=== PATIENT | female | born 1985 | race African-American/Black ===

== ENCOUNTER 2019-01-13 08:16 | Emergency (ER) | payer SELFPAY ==
[2019-01-13] MEDS ORDERED: LORATADINE 10 MG TABLET PO ONE (09:16)
[2019-01-13] MEDS ORDERED: PSEUDOEPHEDRINE HCL 30 MG TABLET PO ONE (09:16)
[2019-01-13] MEDS ORDERED: ACETAMINOPHEN 325 MG TABLET PO ONE (09:16)
[2019-01-13] MEDS ORDERED: GUAIFENESIN 600 MG TABLET.SA PO ONE (09:16)
[2019-01-13] MEDS ORDERED: DEXAMETHASONE 4 MG TABLET PO ONE (09:49)
[2019-01-13] MEDS ORDERED: PENICILLIN G BENZATHINE 1.2 MILLION UNIT/2 ML DISP.SYRIN IM ONE (09:49)
[2019-01-13] MEDS ORDERED: ALBUTEROL SULFATE HFA (90 MCG/PUFF) 8 GM MDI (1 MDI/ER DISP) IH PRN (09:50)
--- NOTE | 2019-01-13 09:51 | ER Document Report ---
ED ENT - General Chief Complaint: Sore Throat Stated Complaint: COLD SYMPTOMS Time Seen by Provider: 01/13/19 09:06 Mode of Arrival: Ambulatory Information source: Patient Notes: 33-year-old female presented to ED for complaint of sore throat times 1 day. She states she had a sore throat with postnasal drainage drainage congestion and headache without improvement with Tylenol Motrin. Patient is alert oriented respirations regular and unlabored speaking in full sentences walks with a even steady gait. TRAVEL OUTSIDE OF THE [place] IN LAST 30 DAYS: No - HPI Patient complains to provider of: Throat problem Onset: Yesterday Onset/Duration: Gradual Quality of pain: Sharp Severity: Moderate Pain Level: 4 Context: Recent Illness Location of pain: Nose, Sinus, Throat Associated symptoms: Congestion, Cough, Runny nose, Sinus pain, Sinus drainage, Sore throat Similar symptoms previously: Yes Recently seen / treated by doctor: No - Related Data Allergies/Adverse Reactions: latex Allergy (Verified 01/13/19 08:18) Past Medical History - General Information source: Patient - Social History Smoking Status: Never Smoker Cigarette use (# per day): No Chew tobacco use (# tins/day): No Smoking Education Provided: No Frequency of alcohol use: None Drug Abuse: None 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 Lives with: Family Family History: Reviewed & Not Pertinent Patient has suicidal ideation: No Patient has homicidal ideation: No - Past Medical History Cardiac Medical History: Reports: None Pulmonary Medical History: Reports: Hx Asthma EENT Medical History: Reports: None Neurological Medical History: Reports: None Endocrine Medical History: Reports: None Renal/ Medical History: Reports: None Malignancy Medical History: Reports: None GI Medical History: Reports: None Musculoskeletal Medical History: Reports None Skin Medical History: Reports None Psychiatric Medical History: Reports: None Traumatic Medical History: Reports: None Infectious Medical History: Reports: None Past Surgical History: Reports: Hx Oral Surgery - wisdom teeth Review of Systems - Review of Systems Constitutional: Recent illness EENT: Nose congestion, Nose discharge, Sinus discharge, Throat pain Cardiovascular: No symptoms reported Respiratory: Cough Physical Exam - Vital signs Vitals: Temp Pulse Resp BP Pulse Ox 97.8 F 83 18 122/75 98 01/13/19 08:21 01/13/19 08:21 01/13/19 08:21 01/13/19 08:21 01/13/19 08:21 Interpretation: Normal - General General appearance: Appears well, Alert - HEENT Head: Normocephalic, Atraumatic Eyes: Normal Pupils: PERRL Ears: Normal External canal: Normal Tympanic membrane: Normal Sinus: Normal Nasal: Purulent discharge, Swelling Mouth/Lips: Normal Mucous membranes: Normal Pharynx: Erythema, Post nasal drainage Neck: Anterior cervical chain - Respiratory Respiratory status: No respiratory distress Chest status: Nontender Breath sounds: Normal Chest palpation: Normal - Cardiovascular Rhythm: Regular Heart sounds: Normal auscultation Murmur: No - Abdominal Inspection: Normal Distension: No distension Bowel sounds: Normal Tenderness: Nontender Organomegaly: No organomegaly - Back Back: Normal, Nontender - Extremities General upper extremity: Normal inspection, Nontender, Normal color, Normal ROM, Normal temperature General lower extremity: Normal inspection, Nontender, Normal color, Normal ROM, Normal temperature, Normal weight bearing. No: Gume's sign - Neurological Neuro grossly intact: Yes Cognition: Normal Orientation: AAOx4 Michael Coma Scale Eye Opening: Spontaneous Michael Coma Scale Verbal: Oriented Michael Coma Scale Motor: Obeys Commands Michael Coma Scale Total: 15 Speech: Normal Motor strength normal: LUE, RUE, LLE, RLE Sensory: Normal - Psychological Associated symptoms: Normal affect, Normal mood - Skin Skin Temperature: Warm Skin Moisture: Dry Skin Color: Normal Course - Vital Signs Vital signs: Temp Pulse Resp BP Pulse Ox 97.6 F 75 18 118/67 99 01/13/19 10:17 01/13/19 10:17 01/13/19 10:17 01/13/19 10:17 01/13/19 10:17 Discharge - Discharge Clinical Impression: Strep pharyngitis URI (upper respiratory infection) Qualifiers: URI type: unspecified viral URI Qualified Code(s): J06.9 - Acute upper respiratory infection, unspecified Condition: Stable Disposition: HOME, SELF-CARE Instructions: Family Physicians / Practices Additional Instructions: STREP THROAT: Your sore throat is due to the streptococcus germ (strep throat). Strep throat usually makes you feel quite ill with fever and aches, headache, swollen sore throat, and tender bumps under the angles of the jaw. Strep throat requires antibiotic treatment. Although the sore throat may go away by itself, complications such as rheumatic fever, kidney disease, or throat abscess can occur. We usually prescribe antibiotics by mouth. Be sure to take the medicine until it's gone. If you stop early, the strep may come back. If you are vomiting, are severely ill, or can't remember to take pills, we can give you an antibiotic shot. Take acetaminophen or ibuprofen for pain and fever. Sip frequent clear liquids, or use popsicles or ice chips. Anesthetic sprays or lozenges may help. Make sure the air in the room is not too dry. Avoid using decongestants or antihistamines. Call the doctor if there is no improvement in three days, or if you have difficulty breathing, increasing throat pain, high fever, rash, or frequent vomiting. UPPER RESPIRATORY ILLNESS: You have a viral infection of the respiratory passages -- a "cold." This common infection causes nasal congestion, drainage, and often sore throat and cough. It is highly contagious. The disease usually lasts about 10 to 14 days. There is no "cure" for the viral infection -- it must run its course. If there is a complication, such as bacterial infection in the nose, sinuses, middle ear, or bronchial tubes, antibiotics may be required. The antibiotics won't affect the virus. Drink plenty of fluids. A humidifier may help. An expectorant medication or decongestant may make you more comfortable. Use acetaminophen or ibuprofen for fever or aches. See the doctor if fever persists over two days, if there is any significant worsening of your symptoms, or if you simply fail to improve as expected. Penicillins The antibiotic you have received is a member of the penicillin family. This is a very useful class of antibiotics. The particular type of antibiotic chosen for you was determined by the nature of your problem. Penicillins are absorbed best when taken on an empty stomach, and should be taken either a half hour before or two hours after a meal. Some newer medicines of the penicillin class are better taken with food -- if this is the case, the pharmacist will label the medicine to alert you. Penicillins usually have no side effects. However, allergy to penicillins is common. If you have had an allergic reaction to any drug of the penicillin family, you should never take any other penicillin. Notify your doctor at once if you develop hives, itching, swelling, faintness, or shortness of breath. Less serious side effects can include nausea or diarrhea. COUGH-SUPPRESSANT & EXPECTORANT MEDICATION: You are to use a cough medication as needed for relief of symptoms. This medicine is a combination of an expectorant (to make the mucous thinner and more easily "coughed up") and a cough suppressant (to reduce the frequency of coughing). The cough-suppressant medicine is related to narcotics. You may experience mild nausea and sleepiness. Some patients who are very sensitive to narcotics may have stomach pain from this medicine. Taking the medicine with food reduces these side effects. Do not drive or work with machinery until you know how this medicine affects you. The expectorant should have no side effects. Iodine-containing expectorants (such as organidin) should not be taken by persons with active thyroid disease unless approved by your doctor. Call the doctor if you develop shortness of breath, hives, rash, itching, lightheadedness, or severe nausea and vomiting. INHALED BRONCHODILATORS: You have received a treatment of and/or prescription for an inhaled bronchodilator -- a medication which stimulates the airways in the lung to dilate. This improves the flow of air in asthma, bronchitis, and emphysema. These medicines have some similarity to adrenaline, and can cause similar side effects: shakiness, racing heart, and a sense of nervousness. These side effects decrease with time. Contact your doctor if these side effects are severe. Do not over-use the medicine. Too-frequent use of the inhaler may make it ineffective. Call your doctor if the inhaler is not controlling your symptoms at the prescribed doses. STEROID MEDICATION: You have been given an injection of or oral medicine of the cortisone/steroid class. This medication is used to control inflammation or allergy. [place]ley t is usually only given for a short period of time, until the acute process subsides. There are usually no side effects from short-term use of cortisone-like medications. Some persons feel an increased sense of well-being and are not sleepy at bedtime. Long-term use of cortisone medications is best avoided, unless required for a severe condition. If your condition does not remit, or relapses after the course of corticosteroid medication, you should consult your physician. USE OF ACETAMINOPHEN (Tylenol): Acetaminophen may be taken for pain relief or fever control. It's much safer than aspirin, offering a wider range of "safe" dosages. It is safe during . Some brand names are Tylenol, Panadol, Datril, Anacin 3, Tempra, and Liquiprin. Acetaminophen can be repeated every four hours. The following are maximum recommended dosages: >89 pounds or adults 650 mg to 900 mg Acetaminophen can be repeated every four hours. Maximum dose not to exceed 4000 mg a day. You were treated in the emergency room with Sudafed 30 mg, Claritin 10 mg, Mucinex 600 mg, and Tylenol 650 mg for your cough cold congestion and viral respiratory symptoms. You also have strep throat and you were treated with a injections of penicillin G which is a one-time shot for strep throat. Other medications that can help you are Flonase spray, salt and soda solution gargles, and Chloraseptic spray for your sore throat. Ibuprofen Ibuprofen is an excellent, safe drug for pain control. In addition, it has potent antiinflammatory effects which are beneficial, especially in the treatment of injuries, arthritis, or tendonitis. It's best to take ibuprofen with food. Persons with ulcer disease or allergy to aspirin should notify their physician of this before taking ibuprofen. Take the medication exactly as prescribed. Don't take additional doses unless instructed to do so by your doctor. If you develop wheezing, shortness of breath, hives, faintness, stomach pain, vomiting, or dark black stools, return for re-evaluation at once. Salt and soda solution gargles 1 quart of water 1 tablespoon of salt 1 teaspoon of baking soda Mixed 3 ingredients together and boil for 1 minute Placed in a covered quart jar Use 1/2 ounce of cold solution to gargle 3 times a day FOLLOW-UP CARE: If you have been referred to a physician for follow-up care, call the physicians office for an appointment as you were instructed or within the next two days. If you experience worsening or a significant change in your symptoms, notify the physician immediately or return to the Emergency Department at any time for re-evaluation. Forms: Return to Work
[2019-01-13 10:21] VITALS: BP 118/67
== END 2019-01-13 10:19 | disposition home or self-care (01) ==
LOC: ER 08:16
DX: J02.0 Streptococcal pharyngitis (principal); J06.9 Acute upper respiratory infection, unspecified; Z91.040 Latex allergy status
CPT/HCPCS: 99283; 96372; 87880; J0561; J3490

== ENCOUNTER 2019-10-06 08:07 | Emergency (ER) | payer SELFPAY ==
[2019-10-06] MEDS ORDERED: ACETAMINOPHEN 325 MG TABLET PO ONE (08:50)
--- NOTE | 2019-10-06 08:50 | ER Document Report ---
HPI - HPI Pain Level: 4 Notes: 7-year-old female presents emergency room with complaints of fever, chills, coughing ear pain sore throat for the last 2 days, has become progressively worse. The negative flu shot this year. Has not tried any [id number] medications. Worse with time, nothing makes better. 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 Denies fevers, chills, chest pain,palpitations, shortness of breath, dyspnea, nausea, vomiting, diarrhea, abdominal pain, hematuria LH, dizziness, syncope, headaches, wheezing, neck pain, weakness, bowel or bladder dysfunction, saddle anesthesia, numbness or tingling in bilateral upper or lower extremities equally, muscle paralysis, weakness in bilateral upper or lower extremities equally or rash. - REPRODUCTIVE LMP: 09/2019 Reproductive: DENIES: : Past Medical History - General Information source: Patient - Social History Smoking Status: Never Smoker Chew tobacco use (# tins/day): No Frequency of alcohol use: Rare Drug Abuse: None Family History: Reviewed & Not Pertinent Patient has suicidal ideation: No Patient has homicidal ideation: No Pulmonary Medical History: Reports: Hx Asthma Renal/ Medical History: Denies: Hx Peritoneal Dialysis Past Surgical History: Reports: Hx Oral Surgery - wisdom teeth Vertical Provider Document - CONSTITUTIONAL Agree With Documented VS: Yes Exam Limitations: No Limitations General Appearance: WD/WN Notes: PHYSICAL EXAMINATION:reviewed vital signs by RN GENERAL: Well-appearing, well-nourished and in no acute distress. HEAD: Atraumatic, normocephalic. EYES: Pupils equal round and reactive to light, extraocular movements intact, conjunctiva are normal. ENT: TM intact with bilateral serous effusion, no erythema. Nares boggy bilatera lly, oropharynx with erythema without exudates. Moist mucous membranes. NECK: Normal range of motion, supple without lymphadenopathy LUNGS: Breath sounds clear to auscultation bilaterally and equal. No wheezes rales or rhonchi. HEART: Regular rate and rhythm without murmurs ABDOMEN: Soft, nontender, nondistended abdomen. No guarding, no rebound. No masses appreciated. Female : deferred Musculoskeletal: Normal range of motion, no pitting or edema. No cyanosis. NEUROLOGICAL: Cranial nerves grossly intact. Normal speech, normal gait. Normal sensory, motor exams PSYCH: Normal mood, normal affect. SKIN: Warm, Dry, normal turgor, no rashes or lesions noted. - INFECTION CONTROL TRAVEL OUTSIDE OF THE [place] IN LAST 30 DAYS: No Course - Re-evaluation Re-evalutation: 10/06/19 14:05 Patient presents with cough, vomiting, diarrhea, and fever at home consistent with a diagnosis of influenza. Influenza testing is positive. Patient is overall well in appearance, in no acute distress. Lung sounds clear. Able to tolerate oral intake without difficulty here in the emergency department. After risks and benefits conversation with the patient regarding the use of Tamiflu, they have elected to use supportive care with Tamiflu At this time will discharge with return precautions and follow-up recommendations. Verbal discharge instructions given a the bedside and opportunity for questions given. Medication warnings reviewed. Patient is in agreement with this plan and has verbalized understanding of return precautions and the need for primary care follow-up in the next 24-72 hours. - Vital Signs Vital signs: Temp Pulse Resp BP Pulse Ox 101.1 F H 123 H 16 102/68 99 10/06/19 08:12 10/06/19 08:12 10/06/19 08:12 10/06/19 08:12 10/06/19 08:12 Discharge - Discharge Clinical Impression: Influenza A Fever Qualifiers: Fever type: unspecified Qualified Code(s): R50.9 - Fever, unspecified AOM (acute otitis media) Qualifiers: Otitis media type: suppurative Laterality: left Recurrence: non-recurrent Spontaneous tympanic membrane rupture: without spontaneous rupture Qualified Code(s): H66.002 - Acute suppurative otitis media without spontaneous rupture of ear drum, left ear Condition: Stable Disposition: HOME, SELF-CARE Instructions: Acetaminophen, Fever ([facility]), Influenza ([facility]), Penicillin V K ([facility]), Sore Throat ([facility]), Strep Throat ([facility]), Viral Syndrome ([facility]) Additional Instructions: You have influenza. There is no treatment that is effective for this diagnosis other than supportive care at home. This includes drinking plenty of fluids, using Tylenol or ibuprofen as needed for fever and discomfort, and Zofran as needed for nausea and vomiting. Please follow closely with you primary care physician the next 1-2 days regarding this diagnosis. Return to the emergency department immediately if you began to have persistent vomiting prevents you from being able to keep fluids down for more than 12 hours, you pass out, you began having difficulty breathing, you become confused, or you have any other symptoms that are worrisome to you. Return immediately for any new or worsening symptoms. Follow up with primary care provider, call tomorrow to make followup appointment. Prescriptions: Penicillin V Potassium [Penicillin Vk 500 mg Tablet] 500 mg PO BID #20 tablet Oseltamivir Phosphate [Tamiflu 75 mg Capsule] 75 mg PO BID #10 capsule Forms: Return to Work Referrals: JERRI ALFARO MD [ACTIVE STAFF] - Follow up tomorrow
[2019-10-06 09:44] LABS: A TYPE INFLUENZA AG NEGATIVE (NEGATIVE); B INFLUENZA AG NEGATIVE (NEGATIVE)
[2019-10-06 10:45] VITALS: BP 100/62
== END 2019-10-06 10:44 | disposition home or self-care (01) ==
LOC: ER 08:07
DX: J11.1 Influenza due to unidentified influenza virus with other respiratory manifestations (principal); R50.9 Fever, unspecified; H92.09 Otalgia, unspecified ear; R19.7 Diarrhea, unspecified
CPT/HCPCS: 87804; 87880; 99283

== ENCOUNTER 2020-01-10 10:16 | Emergency (ER) | payer SELFPAY ==
--- NOTE | 2020-01-10 10:30 | ER Document Report ---
ED Medical Screen (RME) - General Chief Complaint: Abdominal Pain Stated Complaint: ABDOMINAL PAIN, BACK PAIN, LEG PAIN Time Seen by Provider: 01/10/20 10:28 Notes: 34 y/o female presents with left pelvic pain for 3 weeks. Radiates to left lower back. States got worse yesterday. Associated nausea with pain. Denies vomiting, diarrhea, constipation, urinary symptoms, fever, chills, vaginal discharge/bleeding. Abd soft, nontender. No CVA tenderness. States pulled muscle on same side 3 weeks ago but states she does not think this would still be causing her pain. 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 I have greeted and performed a rapid initial assessment of this patient. A comprehensive ED assessment and evaluation of the patient, analysis of test results and completion of the medical decision making process with be conducted by additional ED providers. TRAVEL OUTSIDE OF THE [place] IN LAST 30 DAYS: No - Related Data Allergies/Adverse Reactions: latex Allergy (Verified 10/06/19 08:17) Past Medical History Pulmonary Medical History: Reports: Hx Asthma Renal/ Medical History: Denies: Hx Peritoneal Dialysis Past Surgical History: Reports: Hx Oral Surgery - wisdom teeth Physical Exam - Vital signs Vitals: Temp Pulse Resp BP Pulse Ox 97.9 F 85 18 117/59 L 100 01/10/20 10:20 01/10/20 10:20 01/10/20 10:20 01/10/20 10:20 01/10/20 10:20 Course - Vital Signs Vital signs: Temp Pulse Resp BP Pulse Ox 97.9 F 85 18 117/59 L 100 01/10/20 10:20 01/10/20 10:20 01/10/20 10:20 01/10/20 10:20 01/10/20 10:20
[2020-01-10 10:54] LABS: ABSOLUTE EOSINOPHILS # (AUTO) 0.1 10^3/uL (0.0-0.6); ABSOLUTE LYMPHOCYTES (AUTO) 1.2 10^3/uL (0.5-4.7); ABSOLUTE MONOCYTES (AUTO) 0.3 10^3/uL (0.1-1.4); ABSOLUTE NEUT (AUTO) 2.3 10^3/uL (1.7-8.2); BASOPHILS % (AUTO) 0.8 % (0-2); HEMATOCRIT 38.2 % (36.0-47.0); HEMOGLOBIN 12.6 g/dL (12.0-15.5); LYMPHOCYTES % (AUTO) 30.5 % (13-45); MEAN CORPUSCULAR HEMOGLOBIN 25.7 pg (27.0-33.4); MEAN CORPUSCULAR HGB CONC 32.8 g/dL (32.0-36.0); MEAN CORPUSCULAR VOLUME 78 fl (80-97); MONOCYTES % (AUTO) 7.3 % (3-13); PLATELET COUNT 247 10^3/uL (150-450); RED BLOOD COUNT 4.89 10^6/uL (3.72-5.28); RED CELL DISTRIBUTION WIDTH 16.5 % (11.5-14.0); SEGMENTED NEUTROPHILS % (AUTO) 59.4 % (42-78); TOTAL CELLS COUNTED % (AUTO) 100 %; WHITE BLOOD COUNT 3.9 10^3/uL (4.0-10.5)
[2020-01-10 10:57] LABS: APPEARANCE,URINE SLIGHTLY-CLOUDY; BILIRUBIN,URINE NEGATIVE (NEGATIVE); COLOR,URINE YELLOW; GLUCOSE, URINE NEGATIVE (NEGATIVE); KETONES,URINE NEGATIVE (NEGATIVE); PROTEIN,URINE NEGATIVE (NEGATIVE); URINE SPECIFIC GRAVITY 1.018; UROBILINOGEN,URINE NEGATIVE mg/dL (<2.0)
[2020-01-10 11:12] LABS: ALBUMIN 4.3 g/dL (3.5-5.0); ALKALINE PHOSPHATASE 69 U/L (38-126); ANION GAP 9 (5-19); ASPARTATE AMINO TRANSFERASE 25 U/L (14-36); BILIRUBIN,DIRECT 0.3 mg/dL (0.0-0.4); BILIRUBIN,TOTAL 0.5 mg/dL (0.2-1.3); BLOOD UREA NITROGEN 9 mg/dL (7-20); CALCIUM 9.3 mg/dL (8.4-10.2); CARBON DIOXIDE 26 mmol/L (22-30); CHLORIDE 105 mmol/L (98-107); GLUCOSE 141 mg/dL (75-110); POTASSIUM 4.2 mmol/L (3.6-5.0); TOTAL PROTEIN 7.7 g/dL (6.3-8.2)
[2020-01-10] MEDS ORDERED: KETOROLAC TROMETHAMINE 60 MG/2 ML SDV IM ONE (11:17)
[2020-01-10] MEDS ORDERED: DEXAMETHASONE SOD PHOS INJ 10 MG/1 ML VIAL IM ONE (11:17)
[2020-01-10] MEDS ORDERED: LIDOCAINE 5% (700 MG) TRANSDERMAL ADH..PATCH TP ONE (11:17)
--- NOTE | 2020-01-10 11:22 | ER Document Report ---
HPI - HPI Time Seen by Provider: 01/10/20 10:28 Pain Level: 4 Notes: Patient is a 34-year-old female with no significant past medical history presents complaint left lower back pain that will radiate down the left lateral leg to her knee has been ongoing for the past 3 weeks. Patient has no abdominal or pelvic pain that was described at triage. Patient states that bending and twisting makes the pain worse. She does not recall any injury. She is otherwise ambulating without difficulty. She is able to eat and drink without difficulty. She is urinating normally and having normal bowel movements. No history of spinal abscess, IV drug abuse, diabetes, or spinal abscess. No procedures or surgeries to her back. Denies any headache, fever, neck pain, URI, sore throat, chest pain, palpitations, syncope, cough, shortness of breath, wheeze, dyspnea, abdominal pain, nausea/vomiting/diarrhea, urinary retention, dysuria, hematuria, loss of control of bowel or bladder, numbness/tingling, saddle anesthesia, muscle paralysis/weakness, or rash. - ROS Systems Reviewed and Negative: Yes All other systems reviewed and negative - CARDIOVASCULAR Cardiovascular: DENIES: Chest pain - RESPIRATORY Respiratory: DENIES: Trouble Breathing, Coughing - GASTROINTESTINAL Gastrointestinal: REPORTS: Abdominal Pain - llq. DENIES: Black / Bloody Stools - REPRODUCTIVE Reproductive: DENIES: : Past Medical History - Social History Smoking Status: Never Smoker Chew tobacco use (# tins/day): No Frequency of alcohol use: None Drug Abuse: None Family History: Reviewed & Not Pertinent Patient has suicidal ideation: No Patient has homicidal ideation: No Pulmonary Medical History: Reports: Hx Asthma Renal/ Medical History: Denies: Hx Peritoneal Dialysis Past Surgical History: Reports: Hx Oral Surgery - wisdom teeth Vertical Provider Document - CONSTITUTIONAL Agree With Documented VS: Yes Notes: PHYSICAL EXAMINATION: GENERAL: Well-appearing, well-nourished and in no acute distress. LUNGS: Breath sounds clear to auscultation bilaterally and equal. No wheezes rales or rhonchi. HEART: Regular rate and rhythm without murmurs, rubs, gallops. ABDOMEN: Soft, nontender, nondistended abdomen. No guarding, no rebound. Normal bowel sounds present. No CVA tenderness bilaterally. No pulsatile mass Musculoskeletal: LE's b/l: FROM to passive/active. Strength 5+/5. No deficits noted. No bony tenderness of extremities. Back: FROM to passive/active. Strength 5+/5. No vertebral point tenderness, stepoffs, or deformities. No other bony tenderness, erythema, swelling, or ecc hymosis. SLR negative b/l. + reproducible tenderness to the L-paraspinal mm Lt side. Mild spasming. + left SI jt tenderness. No foot drop Extremities: No cyanosis, clubbing, or edema b/l. Peripheral pulses 2+. Capillary refill less than 2 seconds. NEUROLOGICAL: Normal speech, normal gait. Normal sensory, motor exams. Reflexes 2+ b/l. PSYCH: Normal mood, normal affect. SKIN: Warm, Dry, normal turgor, no rashes or lesions noted. - INFECTION CONTROL TRAVEL OUTSIDE OF THE [place] IN LAST 30 DAYS: No Course - Re-evaluation Re-evalutation: 01/10/20 11:19 Patient is an afebrile, well-hydrated, 34-year-old female who presents to the ED with acute Lt low back pain. Vitals are acceptable. PE is otherwise unremarkable for any focal neurological deficits. Patient was given Toradol, decadron, and Lidoderm patch. She has no significant tachycardia, tachypnea, or hypoxia. She is nontoxic-appearing and is tolerating p.o. without difficulties. There are no signs of infection. No other red flag symptoms noted. Labs unremarkable. No other labs or imaging warranted at this time based on H&P. Low suspicion for any meningitis, fracture, expanding/ruptured AAA, cauda equina syndrome, epidural mass lesion/abscess, herniated disc causing severe spinal stenosis, or other systemic infection at this time. Patient is aware that this condition can change from initial presentation and that she needs monitor symptoms closely for any acute changes. I will send her home with a prescription for Robaxin and motrin. Conservative measures otherwise for symptoms. Recheck with your PCM in 3-5 days. Consider consult with orthopedic/physical therapy. Return to the ED with any worsening/concerning symptoms otherwise as reviewed discharge. Patient is in agreement. - Vital Signs Vital signs: Temp Pulse Resp BP Pulse Ox 97.9 F 85 18 117/59 L 100 01/10/20 10:20 01/10/20 10:20 01/10/20 10:01/10/20 10:20 01/10/20 10:20 - Laboratory Result Diagrams: 01/10/20 10:45 01/10/20 10:45 Laboratory results interpreted by me: 01/10/20 01/10/20 10:45 10:45 WBC 3.9 L MCV 78 L MCH 25.7 L RDW 16.5 H Glucose 141 H Discharge - Discharge Clinical Impression: Low back pain Qualifiers: Chronicity: acute Back pain laterality: left Sciatica presence: with sciatica Sciatica laterality: sciatica of left side Qualified Code(s): M54.42 - Lumbago with sciatica, left side Condition: Stable Disposition: HOME, SELF-CARE Instructions: Muscle Relaxers ([facility]), Stretching Exercises for the Back ([facility]), Low Back Pain ([facility]) Additional Instructions: Rest, Ice Tylenol/ibuprofen as needed Light stretches daily Strength exercises as able Moist heat and massage may help F/u with your PCP in 3-5 days for a recheck Consider consult(s) with Orthopedics/physical therapy for ongoing/worsening symptoms Return to the ED with any worsening symptoms and/or development of fever, headache, chest pain, palpitations, syncope, shortness of breath, trouble breathing, abdominal pain, n/v/d, blood in stool/urine, loss of control of bowel/bladder, urinary retention, muscle weakness/paralysis, saddle anesthesia, numbness/tingling, or other worsening symptoms that are concerning to you. Prescriptions: Ibuprofen [Motrin 800 mg Tablet] 800 mg PO Q8H PRN #15 tab PRN Reason: Methocarbamol [Robaxin 750 mg Tablet] 750 mg PO TID PRN #12 tablet PRN Reason: Referrals: [facility] [Provider Group] - Follow up as needed
[2020-01-10 12:14] VITALS: BP 120/60
== END 2020-01-10 12:16 | disposition home or self-care (01) ==
LOC: ER 10:16
DX: M54.42 Lumbago with sciatica, left side (principal); R10.32 Left lower quadrant pain; M79.605 Pain in left leg; M25.562 Pain in left knee
CPT/HCPCS: 99284; 96372; 36415; 83690; 84703; 85025; 80053; 81001; J1885; J1100

== ENCOUNTER 2020-01-17 11:23 | Emergency (ER) | payer OTHER ==
--- NOTE | 2020-01-17 11:58 | ER Document Report ---
ED Medical Screen (RME) - General Chief Complaint: Hip Pain Stated Complaint: LEFT HIP, LEG AND BACK PAIN Time Seen by Provider: 01/17/20 11:50 Mode of Arrival: Ambulatory Information source: Patient Notes: Patient is an otherwise healthy 34-year-old female seen in this emergency department on 01/10/2024 and low back injury. 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 Patient reports she was prescribed ibuprofen and a muscle relaxer, she states she then followed up with Work[facility] [employer]. at [facility], they report edly gave her prednisone. Patient reports symptoms are getting significantly worse. Denies any saddle anesthesia, urinary or fecal incontinence. Patient declines Toradol injection. Midline lumbar tenderness with palpation. I have greeted and performed a rapid initial assessment of this patient. A comprehensive ED assessment and evaluation of the patient, analysis of test results and completion of the medical decision making process will be conducted by additional ED providers. I have specifically instructed the patient or family members with the patient to immediately return to any nursing staff should anything change in the patient's condition or with their chief complaint. TRAVEL OUTSIDE OF THE [place] IN LAST 30 DAYS: No - Related Data Allergies/Adverse Reactions: latex Allergy (Verified 10/06/19 08:17) shellfish derived Allergy (Verified 01/17/20 11:42) Past Medical History Pulmonary Medical History: Reports: Hx Asthma Renal/ Medical History: Denies: Hx Peritoneal Dialysis Past Surgical History: Reports: Hx Oral Surgery - wisdom teeth
[2020-01-17 12:38] LABS: AMORPHOUS SEDIMENT,URINE TRACE /HPF; APPEARANCE,URINE CLOUDY; BILIRUBIN,URINE NEGATIVE (NEGATIVE); COLOR,URINE YELLOW; GLUCOSE, URINE NEGATIVE (NEGATIVE); KETONES,URINE NEGATIVE (NEGATIVE); PROTEIN,URINE NEGATIVE (NEGATIVE); URINE SPECIFIC GRAVITY 1.018; UROBILINOGEN,URINE NEGATIVE mg/dL (<2.0)
[2020-01-17] MEDS ORDERED: NAPROXEN 250 MG TABLET PO ONE (13:44)
[2020-01-17] MEDS ORDERED: LIDOCAINE 5% (700 MG) TRANSDERMAL ADH..PATCH TP ONE (13:44)
--- NOTE | 2020-01-17 13:50 | ER Document Report ---
ED General - General Chief Complaint: Hip Pain Stated Complaint: LEFT HIP, LEG AND BACK PAIN Time Seen by Provider: 01/17/20 11:50 Primary Care Provider: HUGH ZAFAR MD [NO LOCAL MD] - Follow up in 3-5 days Mode of Arrival: Ambulatory TRAVEL OUTSIDE OF THE [place] IN LAST 30 DAYS: No - HPI Notes: 34-year-old female to the emergency department with complaints of progressively worsening low back pain that radiates into the left hip and down the back of the left leg since she injured it on 01/08. 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 She states that she reached over and was turning the patient over when she felt a popping sensation and then pain. She was seen in our department 2 days later on 01/10. She was given Robaxin and Motrin at the time. She states that that did not really help for her and she was sent to [facility] by her occupational health program for work. They gave her Flexeril and prednisone. She has been taking that and she states that her pain still the same. However she does note that she went back to work this past Saturday on light duty but light duty required quite a bit of walking. She states that prior to going back to work she seemed to be improving some but as soon as she started to work again she started to have more significant pain. She denies any bladder or bowel incontinence. She denies any urinary symptoms. She states that twisting and bending really hurts. She denies any saddle paresthesias. She denies any fevers or chills or IV drug abuse. - Related Data Allergies/Adverse Reactions: latex Allergy (Verified 10/06/19 08:17) shellfish derived Allergy (Verified 01/17/20 11:42) Past Medical History - General Information source: Patient - Social History Smoking Status: Never Smoker Chew tobacco use (# tins/day): No Frequency of alcohol use: None Drug Abuse: None Family History: Reviewed & Not Pertinent Patient has suicidal ideation: No Patient has homicidal ideation: No Pulmonary Medical History: Reports: Hx Asthma Renal/ Medical History: Denies: Hx Peritoneal Dialysis Past Surgical History: Reports: Hx Oral Surgery - wisdom teeth Review of Systems - Review of Systems Constitutional: denies: Chills, Fever EENT: No symptoms reported Cardiovascular: No symptoms reported Respiratory: denies: Cough, Short of breath Gastrointestinal: denies: Abdominal pain, Diarrhea, Nausea, Vomiting, Fecal incontinence Genitourinary: See HPI. denies: Incontinence, Retention Musculoskeletal: See HPI, Back pain Skin: No symptoms reported Hematologic/Lymphatic: No symptoms reported Neurological/Psychological: See HPI, Numbness, Tingling -: Yes All other systems reviewed and negative Physical Exam - Vital signs Vitals: Temp Pulse Resp BP Pulse Ox 97.8 F 95 16 117/68 98 01/17/20 11:28 01/17/20 11:28 01/17/20 11:28 01/17/20 11:28 01/17/20 11:28 Interpretation: Normal - General General appearance: Appears well, Alert Notes: Patient is sitting in a chair and putting most of her weight onto her right side and rubbing her left lower back. She is in mild pain discomfort - HEENT Head: Normocephalic, Atraumatic Eyes: Normal Pupils: PERRL - Respiratory Respiratory status: No respiratory distress Chest status: Nontender Breath sounds: Normal. No: Rales, Rhonchi, Wheezing Chest palpation: Normal - Cardiovascular Rhythm: Regular Heart sounds: Normal auscultation Murmur: No - Abdominal Inspection: Normal Distension: No distension Bowel sounds: Normal Tenderness: Nontender. No: Tender, McBurney's point, Smith's sign, Guarding, Rebound Organomegaly: No organomegaly - Back Notes: There is tenderness to palpation over the lumbar spine and over into the left lumbosacral region and into the left SI joint region. There is no step-off or deformity. It seems to hurt more with palpation of the left SI area. She does have positive left straight leg raise. Negative straight leg raise. She has good range of motion in bilateral lower extremity against resistance with 5 out of strength but activation of the left hip gives her significant pain. - Extremities General upper extremity: Normal inspection, Nontender, Normal color, Normal ROM, Normal temperature General lower extremity: Normal inspection, Nontender, Normal color, Normal ROM, Normal temperature, Normal weight bearing - Neurological Neuro grossly intact: Yes Cognition: Normal Orientation: AAOx4 Michael Coma Scale Eye Opening: Spontaneous [place] Coma Scale Verbal: Oriented [place] Coma Scale Motor: Obeys Commands Michael Coma Scale Total: 15 Speech: Normal Cranial nerves: Normal Cerebellar coordination: Normal Motor strength normal: LUE, RUE, LLE, RLE Additional motor exam normals: Equal polysom tech. No: Pronator drift Sensory: Normal - Psychological Associated symptoms: Normal affect, Normal mood - Skin Skin Temperature: Warm Skin Moisture: Dry Skin Color: Normal Course - Re-evaluation Re-evalutation: 01/17/20 13:50 Patient and I discussed pain management while here in the emergency department. She drove herself and she does not have a means for ride home. This of course is limiting since I cannot give her something that will make her drowsy. We discussed that and landed on Naprosyn and Lidoderm patches for pain control right now. Awaiting CT scan. Noted CT reading which is negative for any acute injury. Patient does not have symptoms to warrant emergent MRI. Will send home with small amount of pain medicines and Lidoderm patch. I encouraged her to complete her steroid Dosepak as well as continue to use her muscle relaxants. Encouraged her to alternate between ice and heat and I will give her information for referral for an orthopedist. Written her for work note and she must see occupational health orthopedist before she can return since her pain got worse when she went back to work. She agrees with the plan. - Vital Signs Vital signs: Temp Pulse Resp BP Pulse Ox 97.8 F 86 16 130/72 H 100 01/17/20 16:09 01/17/20 16:09 01/17/20 16:09 01/17/20 16:09 01/17/20 16:09 - Laboratory Laboratory results interpreted by me: 01/17/20 12:14 Urine Blood LARGE H Leukocyte Esterase Rfl TRACE H Discharge - Discharge Clinical Impression: Low back pain Qualifiers: Chronicity: acute Back pain laterality: left Sciatica presence: with sciatica Sciatica laterality: sciatica of left side Qualified Code(s): M54.42 - Lumbago with sciatica, left side Condition: Stable Disposition: HOME, SELF-CARE Instructions: Low Back Pain ([facility]), Sciatica ([facility]) Additional Instructions: Alternate between ice and heat. May apply each for 20 minutes at a time 3 times a day. Gentle stretching. Follow-up with your occupational health and orthopedist for further care. 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 You must be cleared by back health or orthopedist prior to returning to work. Prescriptions: Lidocaine [Lidoderm 5% (700 mg) Transdermal Patch] 1 patch TP DAILY #30 adh..patch Hydrocodone/Acetaminophen [[place] 5-325 mg Tablet] 1 tab PO Q6H #10 tablet Forms: Special Work Note Referrals: HUGH ZAFAR MD [NO LOCAL MD] - Follow up in 3-5 days
--- NOTE | 2020-01-17 15:26 | RADIOLOGY REPORT (SQ) ---
EXAM DESCRIPTION: CT LUMBAR SPINE WITHOUT COMPLETED DATE/TIME: 01/17/2020 12:54 pm REASON FOR STUDY: low back pain x2 weeks COMPARISON: None. TECHNIQUE: Axial images acquired through the lumbar spine without intravenous contrast. Images revi ewed with lung, soft tissue and bone windows. Reconstructed coronal and sagittal MPR images reviewed . All images stored on PACS. All CT scanners at this facility use dose modulation, iterative reconstruction, and/or weight based d osing when appropriate to reduce radiation dose to as low as reasonably achievable (ALARA). [facility]: Dose Right [facility]: CareDose [facility]: Dose Right [facility]: Teradose 4D [facility]: Extreme Reach RADIATION DOSE: mGy. LIMITATIONS: None. FINDINGS: SEGMENTATION: Normal. No transitional anatomy. ALIGNMENT: Normal. VERTEBRAL BODIES: No fractures. No dislocation. No acute findings. DISCS: No significant protrusions. Study limited by lack of intrathecal contrast. PEDICLES, TRANSVERSE PROCESSES: No fractures. No dislocation. No acute findings. FACETS, POSTERIOR ELEMENTS: No fractures. No dislocation. No spinal stenosis. HARDWARE: None in the spine. VISUALIZED RIBS: No fractures. SOFT TISSUES: No significant or acute finding in adjacent soft tissues. OTHER: No other significant finding. IMPRESSION: NORMAL CT OF THE LUMBAR SPINE. TECHNICAL DOCUMENTATION: JOB ID: [id number] Quality ID # [id number]: Final reports with documentation of one or more dose reduction techniques (e.g., Au tomated exposure control, adjustment of the mA and/or kV according to patient size, use of iterative reconstruction technique) 2010 [employer]- All Rights Reserved Reading location - IP/workstation name: [email or web address]
[2020-01-17 16:32] VITALS: BP 130/72
== END 2020-01-17 16:09 | disposition home or self-care (01) ==
LOC: ER 11:23
DX: M54.42 Lumbago with sciatica, left side (principal); M25.552 Pain in left hip; M79.605 Pain in left leg; M54.9 Dorsalgia, unspecified; R05 Cough; R06.02 Shortness of breath; Z79.899 Other long term (current) drug therapy; Z88.8 Allergy status to other drugs, medicaments and biological substances; J45.909 Unspecified asthma, uncomplicated
CPT/HCPCS: 72131; 81001; 81025; 99284

== ENCOUNTER 2020-07-18 20:13 | Emergency (ER) | payer OTHER ==
--- NOTE | 2020-07-18 20:23 | ER Document Report ---
ED Medical Screen (RME) - General Chief Complaint: Chest Pain Stated Complaint: CHEST PAINS Time Seen by Provider: 07/18/20 20:22 Mode of Arrival: Ambulatory Information source: Patient Notes: 34-year-old female presented to ED for chest pain since Saturday. She states she gets very short of breath when she lays down flat. She does have a history of asthma. Says she has no cardiac history. She is a [employer]. She denies smoking drinking or using any illicit drugs. She does live with her daughter. She is alert oriented respirations regular nonlabored at this time. I have greeted and performed a rapid initial assessment of this patient. A comprehensive ED assessment and evaluation of the patient, analysis of test results and completion of medical decision making process will be conducted by an additional ED providers. TRAVEL OUTSIDE OF THE [place] IN LAST 30 DAYS: No - Related Data Allergies/Adverse Reactions: latex Allergy (Verified 07/18/20 20:20) shellfish derived Allergy (Verified 07/18/20 20:20) Past Medical History Pulmonary Medical History: Reports: Hx Asthma Renal/ Medical History: Denies: Hx Peritoneal Dialysis Past Surgical History: Reports: Hx Oral Surgery - wisdom teeth
[2020-07-18 21:11] LABS: ABSOLUTE EOSINOPHILS # (AUTO) 0.1 10^3/uL (0.0-0.6); ABSOLUTE LYMPHOCYTES (AUTO) 1.9 10^3/uL (0.5-4.7); ABSOLUTE MONOCYTES (AUTO) 0.5 10^3/uL (0.1-1.4); ABSOLUTE NEUT (AUTO) 3.4 10^3/uL (1.7-8.2); BASOPHILS % (AUTO) 0.4 % (0-2); EOSINOPHILS % (AUTO) 1.4 % (0-6); HEMATOCRIT 36.7 % (36.0-47.0); HEMOGLOBIN 11.8 g/dL (12.0-15.5); LYMPHOCYTES % (AUTO) 32.5 % (13-45); MEAN CORPUSCULAR HEMOGLOBIN 25.3 pg (27.0-33.4); MEAN CORPUSCULAR HGB CONC 32.2 g/dL (32.0-36.0); MEAN CORPUSCULAR VOLUME 78 fl (80-97); MONOCYTES % (AUTO) 8.1 % (3-13); PLATELET COUNT 249 10^3/uL (150-450); RED BLOOD COUNT 4.68 10^6/uL (3.72-5.28); RED CELL DISTRIBUTION WIDTH 16.3 % (11.5-14.0); SEGMENTED NEUTROPHILS % (AUTO) 57.6 % (42-78); TOTAL CELLS COUNTED % (AUTO) 100 %; WHITE BLOOD COUNT 5.8 10^3/uL (4.0-10.5)
[2020-07-18 21:23] LABS: APPEARANCE,URINE CLEAR; BILIRUBIN,URINE NEGATIVE (NEGATIVE); COLOR,URINE YELLOW; GLUCOSE, URINE NEGATIVE (NEGATIVE); KETONES,URINE NEGATIVE (NEGATIVE); LEUKOCYTE ESTERASE,URINE NEGATIVE (NEGATIVE); NITRITE,URINE NEGATIVE (NEGATIVE); PROTEIN,URINE NEGATIVE (NEGATIVE); URINE SPECIFIC GRAVITY 1.023
--- NOTE | 2020-07-18 21:24 | RADIOLOGY REPORT (SQ) ---
XR CHEST 2 VIEWS HISTORY: Chest pain. COMPARISON: None. FINDINGS: The heart size is within normal limits. There is no pulmonary vascular congestion. No consolidation, pleural effusion, or pneumothorax is seen. The bony structures are preserved. IMPRESSION: No evidence of acute cardiopulmonary disease.
[2020-07-18 21:27] LABS: ALBUMIN 4.2 g/dL (3.5-5.0); ALKALINE PHOSPHATASE 72 U/L (38-126); ANION GAP 8 (5-19); ASPARTATE AMINO TRANSFERASE 24 U/L (14-36); BILIRUBIN,DIRECT 0.2 mg/dL (0.0-0.4); BILIRUBIN,TOTAL 0.4 mg/dL (0.2-1.3); BLOOD UREA NITROGEN 12 mg/dL (7-20); CALCIUM 9.1 mg/dL (8.4-10.2); CARBON DIOXIDE 26 mmol/L (22-30); CHLORIDE 103 mmol/L (98-107); CREATINE KINASE 109 U/L (30-135); GLUCOSE 100 mg/dL (75-110)
--- NOTE | 2020-07-19 05:59 | ER Document Report ---
ED General - General Chief Complaint: Chest Pain Stated Complaint: CHEST PAINS Time Seen by Provider: 07/18/20 20:22 Primary Care Provider: [facility] [Outside] - Follow up in 1 week ([facility]) Mode of Arrival: Ambulatory Notes: Patient presents with 3 days of in chest pain burning worse when lying flat, after meals with belching and nausea. Partially refractory to Prilosec which she discharged taking yesterday. No history of cardiac disease no radiation arm or shortness of breath no nausea no vomiting. No leg swelling smoking or DVT history. TRAVEL OUTSIDE OF THE [place] IN LAST 30 DAYS: No - Related Data Allergies/Adverse Reactions: latex Allergy (Verified 07/18/20 20:20) shellfish derived Allergy (Verified 07/18/20 20:20) Home Medications: ALBUTEROL Past Medical History - General Information source: Patient - Social History Smoking Status: Never Smoker Frequency of alcohol use: None Drug Abuse: None Family History: Reviewed & Not Pertinent Pulmonary Medical History: Reports: Hx Asthma Renal/ Medical History: Denies: Hx Peritoneal Dialysis Past Surgical History: Reports: Hx Oral Surgery - wisdom teeth Review of Systems - Review of Systems Notes: REVIEW OF SYSTEMS GEN: Denies fever, chills, weight loss ENT: Denies sore throat, nasal discharge, ear pain EYES: Denies blurry vision, eye pain, discharge CV: Pain RESP: Denies cough, shortness of breath, wheezing GI: Denies abdominal pain, nausea, vomiting, diarrhea MSK: Denies joint pain/swelling, edema, SKIN: Denies rash, skin lesions LYMPH: Denies swollen glands/lymph nodes NEURO: Denies headache, focal weakness or numbness, dizziness PSYCH: Denies depression, suicidal or homicidal ideation PHYSICAL EXAMINATION General: No acute distress, well-nourished Head: Atraumatic, normocephalic ENT: Mouth normal, oropharynx moist, no exudates or tonsillar enlargement Eyes: Conjunctiva normal, pupils equal, lids normal Neck: No JVD, supple, no guarding CVS: Normal rate, regular rhythm, no murmurs Resp: No resp distress, equal and normal breath sounds bilaterally GI: Nondistended, soft, no tenderness to palpation, no rebound or guarding Ext: No deformities, no edema, normal range of motion in upper and lower ext Back: No CVA or midline TTP Skin: No rash, warm Lymphatic: No lymphadeopathy noted Neuro: Awake, alert. Face symmetric. GCS 15. Physical Exam - Vital signs Vitals: Temp Pulse Resp BP Pulse Ox 98.2 F 84 16 114/84 100 07/18/20 20:19 07/18/20 20:19 07/18/20 20:19 07/18/20 20:19 07/18/20 20:19 Course - Re-evaluation Re-evalutation: 07/19/20 07:17 Chest pain likely reflecting GERD in a patient with no history of coronary disease and a negative ED work-up. Heart score is 01 Advised ongoing PPI use. Physical exam vital signs are normal, tolerating p.o. doubt dissection or PE. We discussed diet as well. Referred to primary care. I have discussed with the patient there likely diagnosis, aftercare plan, follow-up plans and my usual and customary return precautions. They verbalized understanding of this. - Vital Signs Vital signs: Temp Pulse Resp BP Pulse Ox 98.0 F 70 16 126/60 H 100 07/19/20 04:02 07/19/20 06:00 07/19/20 06:00 07/19/20 06:00 07/19/20 06:00 - Laboratory Result Diagrams: 07/18/20 20:59 07/18/20 20:59 Laboratory results interpreted by me: 07/18/20 07/18/20 20:59 20:59 Hgb 11.8 L MCV 78 L MCH 25.3 L RDW 16.3 H Urine Urobilinogen 2.0 H - Diagnostic Test Radiology reviewed: Image reviewed, Reports reviewed - EKG Interpretation by Ok EKG shows normal: Sinus rhythm Rate: Normal Rhythm: NSR When compared to previous EKG there are: Previous EKG unavailable Additional EKG results interpreted by me: 07/19/20 07:[address] or T wave changes Discharge - Discharge Clinical Impression: GERD (gastroesophageal reflux disease) Qualifiers: Esophagitis presence: with esophagitis Qualified Code(s): K21.0 - Gastro-esophageal reflux disease with esophagitis Condition: Good Disposition: HOME, SELF-CARE Instructions: Antacid Therapy ([facility]), Chest Pain of Unclear Cause ([facility]), Reflux Disease (GERD) ([facility]) Prescriptions: Famotidine [Pepcid 20 mg Tablet] 20 mg PO DAILY #12 tablet Referrals: [facility] [Outside] - Follow up in 1 week ([facility])
[2020-07-19 06:03] VITALS: BP 126/60
--- NOTE | 2020-07-19 17:09 | EKG REPORT ---
SEVERITY:- BORDERLINE ECG - SINUS RHYTHM PROBABLE LEFT ATRIAL ABNORMALITY : Confirmed by: Betty Angulo MD 19-Jul-2020 17:08:44
== END 2020-07-19 06:02 | disposition home or self-care (01) ==
LOC: ER 20:13
DX: K21.0 Gastro-esophageal reflux disease with esophagitis (principal); R07.9 Chest pain, unspecified; R11.0 Nausea; R14.2 Eructation; Z88.8 Allergy status to other drugs, medicaments and biological substances; Z79.51 Long term (current) use of inhaled steroids; J45.909 Unspecified asthma, uncomplicated
CPT/HCPCS: 36415; 71046; 80053; 81001; 82550; 83690; 83735; 84443; 84484; 84702; 85025; 93005; 93010; 99285